=== PATIENT | female | born 1980 | race Caucasian/White ===

== ENCOUNTER 2020-12-11 17:05 | Emergency (ER) | payer SELFPAY ==
[2020-12-11 17:33] VITALS: BP 118/76; PULSE 95; RESP 16; TEMP 37; O2SAT 100; BMI 25.9
[2020-12-11 18:23] VITALS: BP 130/72; PULSE 89; RESP 16; O2SAT 100
--- NOTE | 2020-12-11 18:44 | ECG_ITS ---
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 Measurements Intervals [place] Rate: 82 P: 70 NM: 129 QRS: 39 QRSD: 77 T: 43 QT: 375 QTc: 440 Interpretive Statements SINUS RHYTHM LOW QRS VOLTAGE IN PRECORDIAL LEADS [QRS DEFLECTION < 1.0 mV IN CHEST LEADS] No previous ECG available for comparison Electronically Signed On 12-12-2020 7:33:39 CDT by Adriana Poole M.D. [id number]
--- NOTE | 2020-12-11 18:46 | ED_ITS ---
HPI - General Adult General: Chief complaint: Allergic Reaction Stated complaint: ALLERGIC RXN, CHEST PRESSURE Time Seen by Provider: 12/11/20 18:26 History of Present Illness: HPI narrative: Patient is a 40-year-old female with a history of anxiety, no prior allergies history presented to her primary care doctor's office with complaints of arm hives and chest pain. Patient was recently diagnosed with an ear infection and was prescribed cefdinir. She starte d taking cefdinir at 1pm and developed symptoms of chest pressure, nausea, and b/l proximal arm pruritis around 2pm. Patient went to see her primary doctor was given Benadryl and prednisone with improvement of skin symptoms. Patient was transported to the ED for further evaluation. At this time, patient denies any urticaria, nausea/vomiting or diarrhea or wheezing or shortness of breath. Patient reports that she still has mild substernal chest pressure. Patient denies any any history of smoking, diabetes, hypertension. She has one first degree degree family members with heart issues including father. She tells me that her chest pain symptoms are similar to her previous panic attacks. Onset:4 hrs ago Duration:4 hrs Location:chest Severity:moderate Review of Systems Narrative: Constitutional: No fever, no chills. HEENT: No vision changes CV: +chest pain, no palpitations PULM: no cough, no dyspnea. GI: No abdominal pain, +N/-V/-D. : No dysuria MSKEL: No muscle pain SKIN: No new rashes, no lesions. NEURO: No headache, no focal weakness. HEME: No visible bruises PSYCH: Normal mood Physical Exam Narrative: EXAM NARRATIVE: Head: Atraumatic Eyes: PERRL, conjunctiva without injection ENT: Mucous membrane moist NECK: Supple, ROM intact LUNGS: LCTAB, no crackles/rhonchi CV: RRR ABDOMEN: Soft, nontender in all quadrants EXTREMITY: Normal ROM SKIN: No rash or erythema NEURO: Awake and alert, no focal motor deficits PSYCH: Normal mood and affect Course Vital Signs: Vital signs: Vital Signs Temperature 98.6 F 12/11/20 17:33 Pulse Rate 87 12/11/20 22:15 Respiratory Rate 18 12/11/20 22:15 Blood Pressure 119/60 12/11/20 22:15 Pulse Oximetry 87 L 12/11/20 22:15 MDM - General Adult MDM Narrative: Medical decision making narrative: Patient is a 40-year-old female who presents to the emergency room with concerns of chest pressure and possible allergic reaction. Patient receives steroids and Benadryl prior to arrival in the emergency room. On exam, patient has no signs of urticaria or other skin changes on physical exam. There does not appear to be any wheezing. Patient has no GI complaints at this time. Giving mild chest pressure, and since onset of symptoms x4 hours with family history of cardiac issues, cardiac workup include troponin x 2, EKG and XR chest. Today's work-up within normal limit including troponin x 2. EKG: NSR, rate of 82, CT/QRS/QT within normal limit, no ST-T wave changes, no ectopy Troponin x 2 negative, no ischemic changes on EKG and, patient is currently chest pain-free, do not suspect that the patient is having acute ACS or cardiac event. Given patient follow-up with her primary care provider for further evaluation of her chest pain. At the present time, patient does not have any signs to suggest that she is having an acute anaphylactic reaction. Leukocytosis is likely secondary to the Solu-Medrol which was given at her PCPs office. I do not suspect that she has an acute infection at this time. Patient is instructed to stop taking any medications until they are cleared by her PCP. Disposition: Discharge. Patient is given strict return precaution for any signs of throat swelling, shortness of breath, worsening chest pain, focal weakness, nausea vomiting to dehydration, or any new or concerning complaints relating to her allergies. Lab Data: Labs: Lab Results 12/11/20 12/11/20 12/11/20 Range/Units 18:49 18:49 18:49 WBC 14.4 H (4.0-10.0) 10^3/ uL RBC 4.30 (4.1-5.3) 10^6/u L Hgb 12.6 (11.5-15.3) g/dL Hct 38.0 (37.0-47.0) % MCV 88.4 (81-99) fL MCH 29.3 (28.0-34.0) pg MCHC 33.2 (30.0-36.0) g/dL RDW 12.2 (12.1-15.1) % Plt Count 319 (130-400) 10^3/c mm MPV 11.5 H (7.4-10.4) fL Neut % (Auto) 88.1 % Lymph % (Auto) 8.0 % [place] % (Auto) 2.1 % Eos % (Auto) 0.1 % Baso % (Auto) 0.6 % Neut # (Auto) 12.72 H (1.8-7.7) 10^3/u L Lymph # (Auto) 1.2 (0.8-4.8) 10^3/u L [place] # (Auto) 0.3 (0.2-0.9) 10^3/u L Eos # (Auto) 0.0 (0.0-0.8) 10^3/u L Baso # (Auto) 0.1 (0.0-0.1) 10^3/u L Nucleated RBC % (a uto) 0 % Nucleated RBCs # 0.0 /100WBC Sodium 138 (136-145) mmol/L Potassium 4.2 (3.5-5.1) mmol/L Chloride 106 (98-107) mmol/L Carbon Dioxide 19 L (22-29) mmol/L Anion Gap 17.2 (5-19) BUN 11 (6-20) mg/dL Creatinine 0.7 (0.5-0.9) mg/dL GFR Calculation 92.7 (90-130) mL/min Glucose 115 (65-115) mg/dL Calculated Osmolal ity 286 (285-295) mOsm/k g Calcium 9.4 (8.5-10.5) mg/dL Troponin T Baselin e 6 (0-10) ng/L Troponin T 120 Min [place] (0-10) ng/L Delta Troponin T (0-10) ABS# 12/11/20 Range/Units 20:35 WBC (4.0-10.0) 10^3/ uL RBC (4.1-5.3) 10^6/u L Hgb (11.5-15.3) g/dL Hct (37.0-47.0) % MCV (81-99) fL MCH (28.0-34.0) pg MCHC (30.0-36.0) g/dL RDW (12.1-15.1) % Plt Count (130-400) 10^3/c mm MPV (7.4-10.4) fL Neut % (Auto) % Lymph % (Auto) % [place] % (Auto) % Eos % (Auto) % Baso % (Auto) % Neut # (Auto) (1.8-7.7) 10^3/u L Lymph # (Auto) (0.8-4.8) 10^3/u L [place] # (Auto) (0.2-0.9) 10^3/u L Eos # (Auto) (0.0-0.8) 10^3/u L Baso # (Auto) (0.0-0.1) 10^3/u L Nucleated RBC % (a uto) % Nucleated RBCs # /100WBC Sodium (136-145) mmol/L Potassium (3.5-5.1) mmol/L Chloride (98-107) mmol/L Carbon Dioxide (22-29) mmol/L Anion Gap (5-19) BUN (6-20) mg/dL Creatinine (0.5-0.9) mg/dL GFR Calculation (90-130) mL/min Glucose (65-115) mg/dL Calculated Osmolal ity (285-295) mOsm/k g Calcium (8.5-10.5) mg/dL Troponin T Baselin e (0-10) ng/L Troponin T 120 Min [place] 6.00 (0-10) ng/L Delta Troponin T 0 (0-10) ABS# Imaging Data^: Other Imaging: Radiologist's impression: [address] [id number] ReportSigned Patient: Marleni Nunez #: [id number]: 1980Acct# :[id number]/Sex: 40 / FADM Date: 12/11/20Loc: ERRoom/Bed:Attending Dr: Ordering Provider/Ordering MD: James Lizarraga MD Date of Service: 12/11/20 Procedure(s): XR chest 1V portable [id number] Accession Number(s): [id number] Report Number: [id number] PROCEDURE INFORMATION: Exam: XR Chest Exam date and time: 12/11/2020 8:05 PM Age: 40 years old Clinical indication: Pain; Chest pressure TECHNIQUE: Imaging protocol: XR of the chest. Views: 1 view. COMPARISON: No relevant prior studies available. FINDINGS: Lungs: Unremarkable. No consolidation. Pleural spaces: Unremarkable. No pleural effusion. No pneumothorax. Heart/Mediastinum: Unremarkable. No cardiomegaly. Bones/joints: Unremarkable. XR/XR chest 1V portable [id number] IMPRESSION: No acute findings. Dictated By:June Martinez By:June Martinez Date/Time:12/11/202135DD/ 33 Discharge Plan Discharge Patient Disposition: Home Clinical Impression: Allergic reaction, Urticaria Condition: Stable Prescriptions: New acetaminophen 500 mg capsule 500 mg PO Q6H PRN (Reason: chest pain) Qty: 40 RF: 0 Discharge Orders: Discharge ED (Routine); Ordered 12/11/20 Ordered By: James Lizarraga Discharge Diet: As Directed and Regular Discharge Activity: Resume usual activity Patient Instructions: Opioid Safety Activity Restrictions/Additional Instructions: Come back to the emergency room you have any worsening chest pain, nausea vomiting diarrhea, or any difficulty breathing. Coding Level of Care Code ED Salt Operator for Dashawn Parry
[2020-12-11 19:35] LABS: Basophils # 0.1 10^3/uL (0.0-0.1); Basophils % 0.6 %; Eosinophils % 0.1 %; Hemoglobin 12.6 g/dL (11.5-15.3); Lymphocytes # 1.2 10^3/uL (0.8-4.8); Mean Corpuscular HGB Conc 33.2 g/dL (30.0-36.0); Mean Corpuscular Hemoglobin 29.3 pg (28.0-34.0); Mean Corpuscular Volume 88.4 fL (81-99); Mean Platelet Volume 11.5 fL (7.4-10.4); Monocytes # 0.3 10^3/uL (0.2-0.9); Monocytes % 2.1 %; Neutrophils # 12.72 10^3/uL (1.8-7.7); Neutrophils % 88.1 %; Nucleated Red Blood Cells % 0 %; Platelet Count 319 10^3/cmm (130-400); Red Cell Distribution Width 12.2 % (12.1-15.1); White Blood Count 14.4 10^3/uL (4.0-10.0)
[2020-12-11 19:50] LABS: Troponin(5th) Baseline 6 ng/L (0-10)
[2020-12-11 19:51] LABS: Blood Urea Nitrogen 11 mg/dL (6-20); Calcium 9.4 mg/dL (8.5-10.5); Carbon Dioxide 19 mmol/L (22-29); Chloride 106 mmol/L (98-107); Glomerular Filtration Rate 92.7 mL/min (90-130); Glucose 115 mg/dL (65-115); Osmolality Calculated 286 mOsm/kg (285-295); Sodium 138 mmol/L (136-145)
[2020-12-11 20:01] LABS: Anion Gap 17.2 (5-19); Potassium 4.2 mmol/L (3.5-5.1)
--- NOTE | 2020-12-11 20:05 | XRR_ITS ---
PROCEDURE INFORMATION: Exam: XR Chest Exam date and time: 12/11/2020 8:05 PM Age: 40 years old Clinical indication: Pain; Chest pressure TECHNIQUE: Imaging protocol: XR of the chest. Views: 1 view. COMPARISON: No relevant prior studies available. FINDINGS: Lungs: Unremarkable. No consolidation. Pleural spaces: Unremarkable. No pleural effusion. No pneumothorax. Heart/Mediastinum: Unremarkable. No cardiomegaly. Bones/joints: Unremarkable. XR/XR chest 1V portable [id number] IMPRESSION: No acute findings.
--- NOTE | 2020-12-11 20:44 | ECG_ITS ---
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 Measurements Intervals [place] Rate: 99 P: 72 MD: 128 QRS: 33 QRSD: 91 T: 42 QT: 348 QTc: 447 Interpretive Statements SINUS RHYTHM LOW QRS VOLTAGE IN PRECORDIAL LEADS [QRS DEFLECTION < 1.0 mV IN CHEST LEADS] NONSPECIFIC T-WAVE ABNORMALITY WARNING: DATA QUALITY MAY AFFECT INTERPRETATION Compared to ECG 12/11/2020 19:22:56 T-wave abnormality now present Electronically Signed On 12-12-2020 9:59:56 CDT by Adriana Poole M.D. [id number]
[2020-12-11 21:18] LABS: Troponin 5 2HR Delta 0 ABS# (0-10)
[2020-12-11 21:21] VITALS: BP 129/81; PULSE 93; RESP 17; O2SAT 98
[2020-12-11] MEDS: ketorolac 30 mg/mL INJ IVP (21:48)
[2020-12-11 22:15] VITALS: BP 119/60; PULSE 87; RESP 18; O2SAT 87
== END 2020-12-11 22:18 | disposition home or self-care (01) ==
PROVIDERS: Emergency Provider Emergency Medicine
DX: T78.40XA Allergy, unspecified, initial encounter (principal); L50.9 Urticaria, unspecified
CPT/HCPCS: 36415; 71045; 80048; 84484; 85025; 93005; 96374; 99284; J1885